=== PATIENT | female | born 1985 | race Two or more races ===

== ENCOUNTER 2022-12-13 10:48 | Emergency (ER) | payer MEDICAID, SELFPAY ==
--- NOTE | ~2022-12-13 | US_ITS ---
EXAMINATION: US OB <=14 wk fetus w TV DATE: 12/13/2022 12:24 INDICATION: Vaginal bleeding. Left lower quadrant cramping. TECHNIQUE: Real-time transabdominal and transvaginal pelvic ultrasound was performed. COMPARISON: None. FINDINGS: TRANSABDOMINAL ULTRASOUND: The uterus measures 9.4 x 6.2 x 6.1 cm. TRANSVAGINAL ULTRASOUND: There is an intrauterine gestational sac. A yolk sac is identified. The fet al crown rump length measures 4, which correlates with an estimated gestational age of 6 weeks and 0 day(s) (+/-) 4 day(s). heart motion is not identified by M-mode Doppler, which may be normal at this size. The right ovary measures 2.6 x 1.8 x 1.7 cm. The left ovary measures 3.7 x 2.7 x 4.0 cm. There is no free fluid in the pelvis. IMPRESSION: 1. Single intrauterine gestation with estimated date of delivery of 08/08/2023. Reviewed, dictated and finalized at location A. ESS FLOOR ATTENDANT
[2022-12-13 10:51] VITALS: BP 110/53; PULSE 95; RESP 18; TEMP 36.8; O2SAT 100
--- NOTE | 2022-12-13 11:17 | ED.PREGNANCY ---
HPI - General Chief complaint: PHARMACIST ASSISTANT Stated complaint: Bleeding, 8 weeks Time Seen by Provider: 12/13/22 10:51 Source: patient Mode of arrival: ambulatory Limitations: no limitations History of Present Illness HPI Narrative: Patient is a 37 y/o female who presents to the ED with c/o vaginal bleeding. Patient is and currently approximately 8 weeks gestation by last normal menstrual period. She reports having had vaginal bleeding over the last 5 days. The first 3 days were light vaginal spotting. She states yesterday the bleeding became slightly heavier, darker in color, some clots. She had pain in her lower abdomen yesterday and earlier today, worse on the left side. Patient reports she is moving to the area and was previously in [place]. She had an ultrasound performed there which was too early to determine IUP. Patient plans to follow with Dr. Dubon here, has an appointment on 12/17. She does report some nausea and vomiting, denies fever, dysuria, hematuria. Review of Systems Review of Systems: CONSTITUTIONAL: Denies fever, chills, or sweats. CARDIOVASCULAR: Denies chest pain. RESPIRATORY: Denies dyspnea. GASTROINTESTINAL: See HPI. GENITOURINARY: See HPI. All systems reviewed & are unremarkable except as noted in HPI and below PMFSH Past Medical History Medical History (Updated 12/13/22 @ 12:45 by Sarahi Redmond PA-C) No pertinent past medical history Surgical History Surgical History (Updated 12/13/22 @ 11:18 by Sarahi Redmond PA-C) No pertinent past surgical history Social History Social History (Updated 12/13/22 @ 11:18 by Sarahi Redmond PA-C) Smoking status: Never smoker Exam Narrative: GENERAL: Well appearing, thin, non-toxic, in no acute distress. HEAD: Normocephalic, atraumatic. NECK: Supple. No adenopathy, no masses. RESPIRATORY: Airway patent, respirations nonlabored. Clear to auscultation bilaterally, no rales, rhonchi, wheezing. CARDIOVASCULAR: Regular rate and rhythm without murmurs, rubs, or gallops. Peripheral pulses 2+ and equal bilaterally. ABDOMINAL: Soft, mild tenderness in left lower quadrant/suprapubic region, nondistended, no hepatosplenomegaly. Normoactive BS. PELVIC: Normal external genitalia. Mild amount of dark red/brown vaginal bleeding/discharge in vaginal vault and coming from cervical os. Cervix multiparous, but does not appear open. No significant CMT. MUSCULOSKELETAL: Moves all extremities. Strength/ROM intact without gross deformities. SKIN: Warm, dry, normal color. No rashes. NEURO: A&O X3. Speech clear. Cranial nerves II-XII grossly intact. Steady gait. No ataxic movements. PSYCHIATRIC: Appropriate mood and affect. Normal interaction. Course Vital Signs Vital signs: Vital Signs Temperature 98.2 F 12/13/22 10:51 Pulse Rate 95 12/13/22 10:51 Respiratory Rate 18 12/13/22 10:51 Blood Pressure 110/53 L 12/13/22 10:51 Pulse Oximetry 100 12/13/22 10:51 Oxygen Delivery Room Air 12/13/22 10:51 Temperature 98.2 F 12/13/22 10:51 Pulse Rate 72 12/13/22 13:16 Respiratory Rate 16 12/13/22 13:16 Blood Pressure 101/67 12/13/22 13:16 Pulse Oximetry 100 12/13/22 13:16 Oxygen Delivery Room Air 12/13/22 10:51 MDM - OB/Uterine Contractions MDM Narrative Medical decision making narrative: Patient presented to ED with 5-day history of vaginal bleeding, , approximately 8 weeks gestation, no confirmed IUP. Vital stable upon arrival. Patient with some left lower quadrant tenderness on exam. Beta quant >10,000, no records to compare to. Ultrasound obtained showing single live IUP, 6 weeks +/- 4 days. Pelvic exam performed mild amount of dark red bleeding from cervical os, but cervix appeared closed. Blood type B+, does not require RhoGAM. Remainder of laboratory evaluation unremarkable. Discussed lab and imaging findings with patient and need for follow-up and repeat beta-hCG. Discussed case wi
[2022-12-13 11:39] LABS: Appearance Urine Clear (Clear); Basophils Absolute Auto 0.1 K/mm3 (0.0-0.1); Bilirubin Urine Negative (Negative); Blood Urine Trace-intact (Negative); Color Urine Yellow (Yellow); Eosinophils Absolute Auto 0.2 K/mm3 (0-0.3); Eosinophils Percent Auto 2.2 % (0-4.4); Glucose Urine UA Negative (Negative); Hematocrit 43.6 % (37.0-47.0); Hemoglobin 14.8 g/dL (12.0-15.0); Immature Granulocyte Absolute 0.02 K/mm3 (0.00-0.031); Immature Granulocyte Percent A 0.2 % (0-0.5); Ketones Urine Negative (Negative); Leukocyte Esterase Ur Negative LEU/UL (Negative); Lymphocytes Absolute Auto 2.07 K/mm3 (0.9-3.2); Lymphocytes Percent Auto 25.2 % (18.3-44.2); Mean Corpuscular HGB Conc 33.9 g/dl (32-36); Mean Corpuscular Hemoglobin 30.8 pg (26-34); Mean Corpuscular Volume 90.6 fl (80-100); Mean Platelet Volume 8.6 fl (7.4-10.4); Monocytes Absolute Auto 0.5 K/mm3 (0.1-0.6); Monocytes Percent Auto 6.6 % (2.6-8.5); Neutrophils Absolute Auto 5.3 K/mm3 (1.3-6.7); Neutrophils Percent Auto 64.8 % (45.5-73.1); Nitrate Urine Negative (Negative); Platelet Count Result 283 k/mm3 (150-375); Protein Urine Negative (Negative); Red Blood Count 4.81 M/mm3 (4.2-5.4); Red Cell Distribution Width 12.4 % (11.5-14.5); Urobilinogen Urine 0.2 mg/dL (<2.0); White Blood Count 8.2 K/mm3 (4.5-10.0); pH Urine 6.5 (5.0-9.0)
[2022-12-13 11:48] LABS: Bacteria Urine 2+ /hpf; RBC Urine 0-2 /hpf (0-2); WBC Urine 0-3 /hpf
[2022-12-13 11:51] LABS: Prothrombin Time 12.9 Seconds (11.1-14.7)
[2022-12-13 11:51] LABS: Add Urine Microscopic? YES; Alanine Aminotransferase 22 U/L (6-35); Albumin Level 4.4 g/dL (3.5-5.1); Alkaline Phosphatase 55 U/L (38-126); Anion Gap 8 mmol/L (8-16); Aspartate Amino Transferase 33 U/L (14-36); Bilirubin,Total 0.6 mg/dL (0.2-1.3); Blood Urea Nitrogen 15 mg/dL (7-17); Calcium 9.2 mg/dL (8.4-10.2); Carbon Dioxide 28 mmol/L (22-30); Chloride 100 mmol/L (98-107); Estimated CRCL calculation 83 ml/min; Estimated Glomerular Filt Rate > 60; Glucose 93 mg/dL (65-110); Sodium 136 mmol/L (137-145)
[2022-12-13 11:52] LABS: Partial Thromboplastin Time 31.8 SECONDS (22.3-36.8)
[2022-12-13 12:10] VITALS: BP 101/69; PULSE 68
[2022-12-13 12:11] VITALS: BP 94/73; PULSE 74
[2022-12-13 12:12] VITALS: BP 110/80; PULSE 85
[2022-12-13 13:16] VITALS: BP 101/67; PULSE 72; RESP 16; O2SAT 100
== END 2022-12-13 14:47 | disposition home or self-care (01) ==
PROVIDERS: Emergency Provider Physician Assistant
DX: O20.0 Threatened abortion (principal); Z3A.01 Less than 8 weeks gestation of pregnancy
CPT/HCPCS: 36415; 76801; 76817; 80053; 81001; 84702; 85025; 85461; 85610; 85730; 86850; 86900; 86901; 87077; 87086; 87186; 99284

== ENCOUNTER 2022-12-15 12:16 | Emergency (ER) | payer MEDICAID, SELFPAY ==
--- NOTE | ~2022-12-15 | US_ITS ---
EXAMINATION: US OB <=14 wk fetus w TV DATE: 12/15/2022 14:31 INDICATION: Vaginal bleeding in . TECHNIQUE: Real-time transabdominal and transvaginal pelvic ultrasound was performed. COMPARISON: Ultrasound 12/13/2022 FINDINGS: TRANSABDOMINAL ULTRASOUND: The uterus measures 7.1 x 6.7 x 4.6 cm. TRANSVAGINAL ULTRASOUND: The intrauterine gestational sac seen on the prior ultrasound is no longer p resent. The endometrial complex measures 2.0 cm in thickness and demonstrates internal vascular flow, consistent with retained products of conception. The right ovary measures 3.6 x 3.3 x 1.5 cm. The le ft ovary measures 3.3 x 2.1 x 2.7 cm. There is no free fluid in the pelvis. IMPRESSION: 1. Failed with retained products of conception. Reviewed, dictated and finalized at location A. ITE INSPECTOR
[2022-12-15 12:32] VITALS: BP 98/74; PULSE 95; RESP 15; TEMP 37; O2SAT 100
[2022-12-15] MEDS: SODIUM CHLORIDE 0.9% IV 1,000 ML 999 ML IV CONT (13:13)
[2022-12-15] MEDS: MORPHINE SULFATE (*CRX) 4 MG/ML INJ IV PUSH (13:14)
[2022-12-15 13:20] LABS: Basophils Absolute Auto 0.1 K/mm3 (0.0-0.1); Eosinophils Absolute Auto 0.1 K/mm3 (0-0.3); Eosinophils Percent Auto 1.3 % (0-4.4); Immature Granulocyte Absolute 0.02 K/mm3 (0.00-0.031); Immature Granulocyte Percent A 0.2 % (0-0.5); Lymphocytes Absolute Auto 1.93 K/mm3 (0.9-3.2); Mean Corpuscular HGB Conc 34.1 g/dl (32-36); Mean Corpuscular Hemoglobin 30.8 pg (26-34); Mean Corpuscular Volume 90.3 fl (80-100); Mean Platelet Volume 8.7 fl (7.4-10.4); Monocytes Absolute Auto 0.6 K/mm3 (0.1-0.6); Monocytes Percent Auto 6.7 % (2.6-8.5); Neutrophils Absolute Auto 6.4 K/mm3 (1.3-6.7); Neutrophils Percent Auto 69.8 % (45.5-73.1); Platelet Count Result 265 k/mm3 (150-375); Red Blood Count 4.87 M/mm3 (4.2-5.4); Red Cell Distribution Width 12.6 % (11.5-14.5); White Blood Count 9.2 K/mm3 (4.5-10.0)
[2022-12-15 13:32] LABS: Alanine Aminotransferase 22 U/L (6-35); Albumin Level 4.7 g/dL (3.5-5.1); Alkaline Phosphatase 58 U/L (38-126); Anion Gap 7 mmol/L (8-16); Aspartate Amino Transferase 35 U/L (14-36); Bilirubin,Total 0.8 mg/dL (0.2-1.3); Blood Urea Nitrogen 12 mg/dL (7-17); Calcium 9.1 mg/dL (8.4-10.2); Carbon Dioxide 27 mmol/L (22-30); Chloride 100 mmol/L (98-107); Estimated CRCL calculation 83 ml/min; Estimated Glomerular Filt Rate > 60; Glucose 90 mg/dL (65-110); Potassium 3.6 mmol/L (3.4-5.0); Sodium 134 mmol/L (137-145)
[2022-12-15 13:51] LABS: Prothrombin Time 12.9 Seconds (11.1-14.7)
[2022-12-15 13:52] LABS: Partial Thromboplastin Time 32.4 SECONDS (22.3-36.8)
--- NOTE | 2022-12-15 15:53 | ED.GENADULT ---
HPI - General Adult General Chief complaint: Vaginal Bleeding Stated complaint: 6-7 WEEKS / BLEEDING/ BACK PAIN Time Seen by Provider: 12/15/22 12:45 History of Present Illness HPI narrative: Patient is a 37-year-old female who presents ER with vaginal bleeding. Patient was seen a couple days ago and diagnosed with threatened miscarriage. She had an IUP at the time. Patient reports increased bleeding over the last 2 days especially today. She is passing large clots. She is having lower abdominal cramping. Patient does not require RhoGAM as she has been positive. She has no fevers or chills or sweats. No syncope. She is on no blood thinners. Related Data Allergies Allergy/AdvReac Type Severity Reaction Status Date / Time No Known Allergies Allergy Verified 12/15/22 12:56 Review of Systems Review of Systems: All systems reviewed & are unremarkable except as noted in HPI and below Constitutional: Constitutional: Denies chills, Denies fatigue and Denies fever(s) Cardiovascular: Cardiovascular: Denies chest pain, Denies rapid heart rate and Denies radiating jaw, neck or arm pain Respiratory: Respiratory: Denies cough and Denies dyspnea Gastrointestinal: Gastrointestinal: Reports abdominal pain, Denies diarrhea, Denies nausea and Denies vomiting Genitourinary: Genitourinary: Reports abnormal vaginal bleeding, Denies nocturia, Reports pelvic pain, Denies flank pain and Denies vaginal discharge Neurologic: Denies dizziness, Denies syncope and Denies headache(s) PMFSH Past Medical History Medical History (Updated 12/15/22 @ 15:54 by Andrey Domingo MD) No pertinent past medical history Surgical History Surgical History (Updated 12/13/22 @ 11:18 by Sarahi Redmond PA-C) No pertinent past surgical history Social History Social History (Updated 12/13/22 @ 11:18 by Sarahi Redmond PA-C) Smoking status: Never smoker Exam Narrative: GENERAL: Well-appearing, well-nourished, and in no acute distress. HEAD: Normocephalic, atraumatic. CHEST: Clear to auscultation. No respiratory distress. HEART: Regular rate and rhythm. Normal peripheral pulses. ABDOMEN: Soft, nontender, nondistended. : Normal external genitalia. Speculum exam reveals moderate amount of dark blood with clots. Blood was soaked with 4 x 4's. Cervix identified and products of conception protruding. Ring forceps were used to remove some products and then cervix still dilated 1 cm. No active hemorrhage or continued pooling. EXTREMITIES: Normal range of motion. No edema. SKIN: Warm, dry, no rash. NEURO: Alert and oriented x3. PSYCH: Normal mood and affect. Course Course Emergency Course: Patient resting comfortably. Informed of results and treatment plan. I been in touch with Dr. Dubno who would like patient to follow-up in clinic tomorrow. We discussed retained products seen on ultrasound and she feels that patient is just in the middle of miscarriage and expectant management and bleeding precaution should be given. Vital Signs Vital signs: Vital Signs Temperature 98.6 F 12/15/22 12:32 Pulse Rate 95 12/15/22 12:32 Respiratory Rate 15 12/15/22 12:32 Blood Pressure 98/74 L 12/15/22 12:32 Pulse Oximetry 100 12/15/22 12:32 Oxygen Delivery Room Air 12/15/22 12:32 Temperature 98.6 F 12/15/22 12:32 Pulse Rate 62 12/15/22 16:00 Respiratory Rate 16 12/15/22 16:00 Blood Pressure 100/60 12/15/22 16:00 Pulse Oximetry 100 12/15/22 16:00 Oxygen Delivery Room Air 12/15/22 12:32 Medical Decision Making Vital Signs Vital Signs: Vital Signs Temperature 98.6 F 12/15/22 12:32 Pulse Rate 95 12/15/22 12:32 Respiratory Rate 15 12/15/22 12:32 Blood Pressure 98/74 L 12/15/22 12:32 Pulse Oximetry 100 12/15/22 12:32 Oxygen Delivery Room Air 12/15/22 12:32 Temperature 98.6 F 12/15/22 12:32 Pulse Rate 62 12/15/22 16:00 Respiratory Rate 16 12/15/22 16:0
[2022-12-15 16:00] VITALS: BP 100/60; PULSE 62; RESP 16; O2SAT 100
== END 2022-12-15 16:10 | disposition home or self-care (01) ==
PROVIDERS: Emergency Provider Emergency Medicine; Referring Provider Obstetrics & Gynecology
DX: O03.4 Incomplete spontaneous abortion without complication (principal)
CPT/HCPCS: 36415; 76801; 76817; 80053; 84702; 85025; 85610; 85730; 96361; 96374; 99284; J2270; J7030